=== PATIENT | male | born 1960 ===

== ENCOUNTER → 2025-05-27 18:14 | Outpatient (REF) | payer MEDICARE, SELFPAY | LOC: CLAB 18:14 | PROVIDERS: ATTENDING PHYSICIAN Orthopaedic Surgery Hand Surgery; FAMILY PHYSICIAN Student in an Organized Health Care Education/Training Program | DX: R22.31 Localized swelling, mass and lump, right upper limb (principal) | CPT/HCPCS: 88304 ==